=== PATIENT | male | born 1995 | race Caucasian/White ===

== ENCOUNTER 2016-12-02 16:51 | Emergency (ER) | payer BC ==
[~2016-12-02] VITALS: Ht 180.3 cm; Wt 66.9 kg
[2016-12-02 16:58] VITALS: TEMP 37.3; Ht 180.3 cm; Wt 66.9 kg
[2016-12-02] MEDS ORDERED: SODIUM CHLORIDE 0.9% 1000ML 1,000 ML IV STA (17:16)
[2016-12-02] MEDS ORDERED: ONDANSETRON INJ 2 MG/ML 2 ML VIAL IV STA (17:16)
--- NOTE | 2016-12-02 17:29 | EMERGENCY ROOM VISIT NOTE ---
History First contact with patient: 17:03 Chief Complaint: FEVER Stated Complaint: HIGH FEVER, SORE THROAT, COUGH, NAUSEA History of Present Illness The patient is a 21 year old male who presents to the Emergency Room with complaints of sore throat, headache, fatigue, and fever which began this morning. The patient states he took her to us for his class, but then began feeling nauseated and noticing the chills. He went home and laid down, and when he checked his temperature was 103F. He did take 400 mg of Advil approximately one hour ago which did seem to help with the fever and headache. He states he is also pending feeling congested and did take some Mucinex this morning. He admits to congestion, cough, nausea, headache, feeling fatigued. He denies any vomiting. He states he has been able to tolerate soup and pretzels, but is not feeling right so wanted to come to the emergency department for evaluation. The patient states he has been coughing up mucus, but denies any coughing up blood. He denies wheezing, chest pain, difficulty breathing. He denies any urinary symptoms including dysuria or hematuria. The patient states he has had strep throat in the past, but his throat was more sore at that point. He has only take the Mucinex and ibuprofen for his symptoms. The patient did not get a flu shot this year. Review of Systems A complete 10 point review of systems was reviewed with the patient with pertinent positives and negatives as per history of present illness. All else were negative. Past Medical/Surgical History None Social History Smoking Status: Never Smoker Smokeless Tobacco Use: No Alcohol Use: none Drug Use: none Marital Status: single Housing Status: lives with roommate Occupation Status: [employer] student Current/Historical Medications Scheduled Ondasetron Odt (Zofran Odt), 4 MG SL Q6H Allergies None Physical Exam Vital Signs Date Time Temp Pulse Resp B/P (MAP) Pulse Ox O2 Delivery O2 Flow Rate FiO2 12/02/16 19:53 71 16 118/73 98 12/02/16 17:55 67 20 114/55 97 Room Air 12/02/16 16:58 37.3 106 20 114/55 95 Room Air Physical Exam VITALS: Vitals are noted on the nurse's note and reviewed by myself. Vital signs stable. GENERAL: This is a 21-year-old white male, in no acute distress, nondiaphoretic , well-developed well-nourished. SKIN: The skin was without rashes, erythema, edema, or bruising. There is no tenting of the skin. Capillary reflex less than 2 seconds. HEAD: Normocephalic atraumatic. EARS: External auditory canals clear, tympanic membranes with mild erythema, but no bulging or effusion bilaterally. EYES: Pupils equal round and reactive to light and accommodation. Conjunctivae without injection, sclerae without icterus. Extraocular movements intact. NOSE: Patent, turbinates without inflammation or discharge. No sinus tenderness. MOUTH: Mucous membranes moist. Tonsils are not enlarged. Pharynx with mild erythema, but no exudate. Uvula midline. Airway patent. Tongue does not deviate. NECK: Supple without nuchal rigidity. No lymphadenopathy. No thyromegaly. Cervical spine is nontender. No JVD. HEART: Regular rate and rhythm without murmurs gallops or rubs. LUNGS: Clear to auscultation bilaterally without wheezes, rales or rhonchi. No dullness to percussion. No retractions or accessory muscle use. ABDOMEN: Positive bowel sounds x 4. Normal tympanic percussion. Soft, nontender, without masses or organomegaly. Tsang sign negative. No guarding or rebound tenderness. MUSCULOSKELETAL: No muscle atrophy, erythema, or edema noted. Full range of motion without joint tenderness in all extremities. No tenderness to palpation. Normal gait. Strength 5/5 throughout. NEURO: Patient was alert and oriented to person place and time. Normal sensation to light and sharp touch. Deep tendon reflexes 2+ throughout. No focal neurological deficits. Medical Decision & Procedures ER Provider Diagnostic Interpretation: LABS: CBC did show mild leukocytosis of 12.57. No significant anemia or thrombocytopenia. He was without renal or electrolyte abnormalities. Urinalysis did show evidence of slight dehydration, but no obvious signs of infection. Influenza and Monospot testing were negative. CXR: CHEST 2 VIEWS ROUTINE CLINICAL HISTORY: Cough. Fever. COMPARISON STUDY: No previous studies for comparison. FINDINGS: Lung volumes are normal. No pneumothorax or pleural effusion is identified. There is no consolidation to suggest pneumonia. Cardiomediastinal silhouette is normal. IMPRESSION: No acute cardiopulmonary findings. Electronically signed by: Paddy Mesa M.D. 12/02/2016 6:29 PM Dictated Date/Time: 12/02/2016 6:28 PM Laboratory Results 12/02/16 17:50 Red Blood Count 4.47, Mean Corpuscular Volume 85.0, Mean Corpuscular Hemoglobin 30.4, Mean Corpuscular Hemoglobin Concent 35.8, Mean Platelet Volume 10.9, Neutrophils (%) (Auto) 80.9, Lymphocytes (%) (Auto) 9.3, Monocytes (%) (Auto) 9.1, Eosinophils (%) (Auto) 0.3, Basophils (%) (Auto) 0.2, Neutrophils # (Auto) 10.17, Lymphocytes # (Auto) 1.17, Monocytes # (Auto) 1.15, Eosinophils # (Auto) 0.04, Basophils # (Auto) 0.02 12/02/16 17:50 Test 12/02/16 17:50 12/02/16 19:10 White Blood Count 12.57 K/uL (4.8-10.8) Red Blood Count 4.47 M/uL (4.7-6.1) Hemoglobin 13.6 g/dL (14.0-18.0) Hematocrit 38.0 % (42-52) Mean Corpuscular Volume 85.0 fL (80-100) Mean Corpuscular Hemoglobin 30.4 pg (25-34) Mean Corpuscular Hemoglobin Concent 35.8 g/dl (32-36) Platelet Count 196 K/uL (130-400) Mean Platelet Volume 10.9 fL (7.4-10.4) Neutrophils (%) (Auto) 80.9 % Lymphocytes (%) (Auto) 9.3 % Monocytes (%) (Auto) 9.1 % Eosinophils (%) (Auto) 0.3 % Basophils (%) (Auto) 0.2 % Neutrophils # (Auto) 10.17 K/uL (1.4-6.5) Lymphocytes # (Auto) 1.17 K/uL (1.2-3.4) Monocytes # (Auto) 1.15 K/uL (0.11-0.59) Eosinophils # (Auto) 0.04 K/uL (0-0.5) Basophils # (Auto) 0.02 K/uL (0-0.2) RDW Standard Deviation 37.7 fL (36.4-46.3) RDW Coefficient of Variation 12.2 % (11.5-14.5) Immature Granulocyte % (Auto) 0.2 % Immature Granulocyte # (Auto) 0.02 K/uL (0.00-0.02) Anion Gap 9.0 mmol/L (3-11) Est Creatinine Clear Calc Drug Dose 118.9 ml/min Estimated GFR () 135.5 Estimated GFR (Non- 116.9 BUN/Creatinine Ratio 15.8 (10-20) Calcium Level 8.6 mg/dl (8.5-10.1) Monoscreen NEG (NEG) Influenza Type A Antigen Neg for Influ A (NEG) Influenza Type B Antigen Neg for Influ B (NEG) Urine Color DK YELLOW Urine Appearance CLEAR (CLEAR) Urine pH 6.0 (4.5-7.5) Urine Specific Logan 1.035 (1.000-1.030) Urine Protein 1+ (NEG) Urine Glucose (UA) NEG (NEG) Urine Ketones 1+ (NEG) Urine Occult Blood NEG (NEG) Urine Nitrite NEG (NEG) Urine Bilirubin NEG (NEG) Urine Urobilinogen NEG (NEG) Urine Leukocyte Esterase TRACE (NEG) Urine WBC (Auto) 1-5 /hpf (0-5) Urine RBC (Auto) 0-4 /hpf (0-4) Urine Hyaline Casts (Auto) 1-5 /lpf (0-5) Urine Epithelial Cells (Auto) 5-10 /lpf (0-5) Urine Bacteria (Auto) NEG (NEG) Medications Administered Medications (Trade) Dose Ordered Sig/Maricarmen Route Start Time Stop Time Status Last Admin Dose Admin Sodium Chloride 1,000 ml @ 999 mls/hr Q1H1M STAT IV 12/02/16 17:16 12/02/16 18:16 DC 12/02/16 17:54 999 MLS/HR Ondansetron HCl (Zofran Inj) 4 mg NOW STAT IV 12/02/16 17:16 12/02/16 17:18 DC 12/02/16 17:54 4 MG Medical Decision The patient was seen and evaluated as above. Based on his diffuse symptoms and negative workup, I do suspect viral etiology of his symptoms. I discussed this with the patient, and encouraged him to treat his symptoms and stay well-hydrated. I advised him that these types of illnesses often last for 24-72 hours. The patient was given Zofran to take as needed for vomiting. Differential diagnosis includes: Pneumonia, bronchitis, upper respiratory infection, lower respiratory infection, acute viral gastroenteritis, mono, strep pharyngitis, influenza, malignancy, and others Medication Reconcilliation Current Medication List: was personally reviewed by me Blood Pressure Screening Patient's blood pressure: Normal blood pressure Impression Primary Impression: Fever Departure Information Dispostion Home / Self-Care Condition GOOD Prescriptions Ondasetron Odt (ZOFRAN ODT) 4 Mg Tab 4 MG SL Q6H for Nausea, #6 TAB Prov: Gail Basilio PA-C 12/02/16 Referrals No Doctor, Assigned (PCP) [facility] Patient Instructions ED Fever Control, ED Fever Unconf Cause, [facility] Additional Instructions He was seen in the emergency department today for a fever. Labs and chest x- ray did rule out pneumonia, influenza, mono, and strep throat. A strep culture is pending and will be available in approximately 48 hours. Please drink any fluids and stay well-hydrated. You may eat soups, broths, popsicles, or other foods which are easy to digest and will not cause increased stomach upset. You have been prescribed Zofran to help with nausea and vomiting. Take this medication as prescribed. He may take the following OTC medications to help with pain and fever. Use these medications only as directed. Ibuprofen(Motrin, Advil) may be used for fever or pain. Use 600mg every six hours as needed. Take with food. Avoid using more than 2400mg in a 24 hour period. Do not use 2400mg per day for more than three consecutive days without physician direction. Prolonged inappropriate use can lead to stomach upset or ulcers. (AND/OR) Acetaminophen(Tylenol) may be used for fever or pain. Use 1000mg every six hours as needed. Avoid using more than 3000mg in a 24 hour period. Please follow up with [facility] or your family physician in 2- 3 days for recheck and reevaluation of your symptoms. Return to the emergency department for worsening fever, chills, nausea, vomiting , vomiting blood, significant abdominal pain, or other concerning symptoms. School Instructions Return To School: 2 days Problem Qualifiers Primary Impression: Fever Fever type: unspecified Qualified Codes: R50.9 - Fever, unspecified
[2016-12-02 18:05] LABS: BASO % 0.2 %; BASO ABS # 0.02 K/uL (0-0.2); COMPLETE YES; EOS % 0.3 %; IG% 0.2 %; LYMPH % 9.3 %; LYMPH ABS # 1.17 K/uL (1.2-3.4); MEAN CORPUSCULAR HEMOGLOBIN 30.4 pg (25-34); MEAN CORPUSCULAR HGB CONC 35.8 g/dl (32-36); MEAN PLATELET VOLUME 10.9 fL (7.4-10.4); MONO % 9.1 %; NEUT % 80.9 %; PLATELET COUNT 196 K/uL (130-400); RED BLOOD COUNT 4.47 M/uL (4.7-6.1); WHITE BLOOD COUNT 12.57 K/uL (4.8-10.8)
[2016-12-02 18:22] LABS: BUN/CREATININE RATIO 15.8 (10-20); CALCIUM 8.6 mg/dl (8.5-10.1); CREATININE 0.93 mg/dl (0.60-1.40); POTASSIUM 3.3 mmol/L (3.5-5.1)
--- NOTE | 2016-12-02 18:31 | DIAGNOSTIC IMAGING REPORT ---
CHEST 2 VIEWS ROUTINE CLINICAL HISTORY: Cough. Fever. COMPARISON STUDY: No previous studies for comparison. FINDINGS: Lung volumes are normal. No pneumothorax or pleural effusion is identified. There is no consolidation to suggest pneumonia. Cardiomediastinal silhouette is normal. IMPRESSION: No acute cardiopulmonary findings. Electronically signed by: Paddy Mesa M.D. 12/02/2016 6:29 PM Dictated Date/Time: 12/02/2016 6:28 PM
[2016-12-02 19:24] LABS: URINE APPEARANCE CLEAR (CLEAR); URINE COLOR DK YELLOW; URINE NITRITE NEG (NEG); URINE SPECIFIC GRAVITY 1.035 (1.000-1.030); UROBILINOGEN NEG (NEG); ZZUR CULT IF INDIC CLEAN CATCH NO
[2016-12-02 19:25] LABS: MANUAL MICROSCOPIC REQUIRED? NO; REVIEW REQ? NO
[2016-12-02 19:26] LABS: URINE BILIRUBIN NEG (NEG)
[2016-12-02] MEDS ORDERED: ONDA4TAB10 SL (19:30)
[2016-12-02 19:53] VITALS: BP 118/73; PULSE 71; O2SAT 98
== END 2016-12-02 19:53 | disposition home or self-care (01) ==
LOC: C.EDB 16:54 → C.EDC 19:53
DX: R50.9 Fever, unspecified (principal); J02.9 Acute pharyngitis, unspecified; R51 Headache; R53.83 Other fatigue